=== PATIENT | female | born 1945 | race Hispanic/Latino ===

== ENCOUNTER → 2017-05-22 | Day surgery (SDC) | payer MEDICARE ==
[2017-05-19 11:00] LABS: BASOPHILS % 0.5 % (0.0-1.0); EOSINOPHILS # (AUTO) 0.1 (0.0-0.4); EOSINOPHILS % 0.8 % (0.0-6.0); HEMATOCRIT 41.9 % (34.2-44.1); HEMOGLOBIN 14.1 g/dL (12.0-16.0); LYMPHOCYTES # (AUTO) 2.6 (1.0-3.2); LYMPHOCYTES % 41.8 % (18.0-39.1); MEAN CORPUSCULAR HEMOGLOBIN 30.4 pg (28-32); MEAN CORPUSCULAR HGB CONC 33.7 g/dL (31-35); MEAN CORPUSCULAR VOLUME 90.3 fL (81-99); MONOCYTES # (AUTO) 0.8 (0.2-0.8); MONOCYTES % 12.2 % (4.4-11.3); NEUTROPHILS # (AUTO) 2.8 (2.1-6.9); NEUTROPHILS % 44.4 % (38.7-80.0); PLATELET COUNT 148 x10e3/uL (140-360); RED BLOOD COUNT 4.64 x10e6/uL (3.6-5.1); RED CELL DISTRIBUTION WIDTH 13.1 % (11.7-14.4)
--- NOTE | 2017-05-19 13:11 | Diagnostic Imaging Report ---
PROCEDURE: X-RAY CHEST, TWO VIEWS COMPARISON: None. INDICATIONS: PRE OPERATIVE CHEST XRAY FINDINGS: LUNGS: Clear. No mass or infiltrate. PLEURA: No effusions or pneumothorax. HEART \T\ MEDIASTINUM: The heart is within normal size-limits. The aorta is ectatic. BONES \T\ SOFT TISSUES: There are endplate degenerative changes of the spine. No compression fractures. Surgical clips in the left axilla are present. The breast shadows are asymmetric suggestive of partial mastectomy of the left breast. CONCLUSION: No acute thoracic abnormality. Dictated by: Teresa Marinelli M.D. on 05/19/2017 at 13:12 Electronically approved by: Teresa Marinelli M.D. on 05/19/2017 at 13:12
[~2017-05-22] MED LIST: BUPROPION HCL100 M1 PO; BUPROPION HCL150 M2 PO; CALCIUM CITRAT1 EAC3 PO; CEFTRIAXONE SOD 1 GM VIAL ONE; DEXAMETHASONE SOD PHOS INJ 4 MG/ML VIAL ONE; DICYCLOMINE HCL10 MG PO; EPHEDRINE SULFATE INJ 50 MG/10 ML SYR ONE; FENTANYL CITRATE/PF 100MCG/2 ML INJ ONE; FEXOFENADINE H180 MG PO; FLONASE; IOPAMIDOL 300MG/ML 50ML INFUS..BTL IV ONE; LEVOTHYROXINE50 MCG PO; LEXAPRO10 MG PO; LIDOCAINE HCL 2% LOCAL INJ 5 ML SDV VIAL INJ ONE; LISINOPRIL10 MG PO; MELOXICAM7.5 MG PO; MIDAZOLAM HCL 2 MG/2 ML VIAL ONE; OMEPRAZOLE40 MG PO; ONDANSETRON HCL INJ 2 MG/ML VIAL ONE; PROPOFOL IV EMULSION 10 MG/ML 20 ML VIAL ONE; RISPERDAL1 MG PO; SEVOFLURANE INHAL SOLN 250 ML PEN BTL ONE; TYLENOL PO; VOLTAREN100 GM TOP
--- OUTSIDE RECORDS SUMMARY | 2017-05-22 06:12 | XMS REPORT ---
Author Author [facility] Address Unknown Phone Unavailable Care Team Providers Care Watch Adjuster Name Role Phone TOM RIVERA Unavailable Unavailable Problems This patient has no known problems. Allergies, Adverse Reactions, Alerts This patient has no known allergies or adverse reactions. Medications This patient has no known medications. Results Test Description Test Time Test Comments Text Results Atomic Results Result Comments CHEST 2 VIEWS [place] [address] Patient Name: LICO ALCAZAR MR #: [id number] : 1945 Age/Sex: 71/F Req #: [id number] Adm Physician: Ordered by: NANDO TYLER MD Report #: [id number] Location: OR Room/Bed: Procedure: [id number] DX/CHEST 2 VIEWS Exam Date: 05/19/17 Exam Time: 1016 REPORT STATUS: Signed PROCEDURE: X-RAY CHEST, TWO VIEWS COMPARISON: None. INDICATIONS: PRE OPERATIVE CHEST XRAY FINDINGS: LUNGS: Clear. No mass or infiltrate. PLEURA: No effusions or pneumothorax. HEART T MEDIASTINUM: The heart is within normal size- limits. The aorta is ectatic. BONES T SOFT TISSUES: There are endplate degenerative changes of the spine. No compression fractures. Surgical clips in the left axilla are present. The breast shadows are asymmetric suggestive of partial mastectomy of the left breast. CONCLUSION : No acute thoracic abnormality. Dictated by: Chance Marinelli M.D. on 05/19/2017 at 13:12 Electronically approved by: Chance Marinelli M.D. on 05/19/2017 at 13:12 Dictated By: CHANCE MARINELLI MD [id number] Transcribed By: GELA on 05/19/17 131 COPY TO: NANDO TYLER MD
--- NOTE | 2017-05-22 08:36 | Operative Report ---
DATE OF PROCEDURE: May 22, 2017 PREOPERATIVE DIAGNOSES 1. Multiple chronic urinary tract infections. 2. Clinical signs and symptoms of interstitial cystitis without hematuria. POSTOPERATIVE DIAGNOSES 1. Multiple chronic urinary tract infections. 2. Clinical signs and symptoms of interstitial cystitis without hematuria. 3. Urethral stricture disease. PROCEDURES 1. Cystourethroscopy with calibration and dilation of urethral stricture (entirely separate procedure for urethral stricture disease). 2. Cystourethroscopy with hydrodistention under general anesthesia (entirely separate procedure for clinical signs and symptoms of interstitial cystitis without hematuria). 3. Cystourethroscopy with left ureteral catheterization and left retrograde pyelogram (entirely separate procedure for multiple chronic urinary tract infections). 4. Cystourethroscopy with right ureteral catheterization and right retrograde pyelogram (separate procedure for multiple urinary tract infections). 5. Supervision of fluoroscopy. 6. Interpretation of retrograde ureteropyelography. ANESTHESIA: General. ESTIMATED BLOOD LOSS: Minimal. COMPLICATIONS: None. INDICATIONS FOR PROCEDURE: Dafne Ricci is a 71-year-old female with multiple chronic urinary tract infections and clinical symptoms of interstitial cystitis. She and I had a long discussion about alternatives, risks and benefits including doing nothing, cystoscopy, IVP, retrograde pyelograms, ultrasound, hydrodistention. She voiced understanding of the options, alternatives, risks and benefits and elected to proceed with retrograde pyelograms and to avoid the nephrotoxic risk of dye. PROCEDURE IN DETAIL: After informed consent was obtained, the patient was taken to the operative suite. She was placed supine on the table. She underwent general anesthesia by the anesthesia service, and placed in the dorsal lithotomy position, and sterilely prepped and draped in the standard fashion for cystoscopy. Attempts were made to insert a 22.5-Bhutanese cystoscope. This failed. The urethra was calibrated to 16-Bhutanese. It was dilated to 24-Bhutanese with sounds. A 22.5-Bhutanese cystoscope was inserted per urethra. Of note, there was a grade 3-4 prolapse, grade 3-4 cystocele, grade 3-4 rectocele. There was positive vaginal atrophy. 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 No tumors. No stones. Both ureteral orifices were in normal anatomic location and position, and were seen to efflux clear urine. Hydrodistention was performed revealing a capacity of 1000 mL. No glomerulations and no Guy's ulcers. Bilateral retrograde pyelograms were performed. Other than air bubble filling defects in the distal ureter, retrograde pyelograms were normal. The bladder was drained. The patient was awakened from anesthesia and transported to the recovery room in excellent condition. SUPERVISION OF FLUOROSCOPY, INTERPRETATION OF RETROGRADE URETERAL PYELOGRAPHY: I was present throughout the entire procedure and I supervised the use of fluoroscopy as no radiologist was present. Attention was turned toward the left and right ureteral orifices, catheterized with an 8-Bhutanese cone-tipped catheter. In a retrograde fashion, contrast was injected. It revealed delicate ureters, delicate pelviceal systems. Abnormal filling defects were noted under fluoroscopy. Otherwise, normal retrograde pyelograms. Job#: [id number] FANG
== END | disposition home or self-care (01) ==
LOC: OR 06:09
PROVIDERS: ATTEND Urology
DX: N30.80 Other cystitis without hematuria (principal); N35.9 Urethral stricture, unspecified; N81.3 Complete uterovaginal prolapse; N95.2 Postmenopausal atrophic vaginitis; M19.90 Unspecified osteoarthritis, unspecified site; G47.33 Obstructive sleep apnea (adult) (pediatric); E03.9 Hypothyroidism, unspecified; K21.9 Gastro-esophageal reflux disease without esophagitis; K25.9 Gastric ulcer, unspecified as acute or chronic, without hemorrhage or perforation; K44.9 Diaphragmatic hernia without obstruction or gangrene; R00.1 Bradycardia, unspecified; F41.9 Anxiety disorder, unspecified; Z01.810 Encounter for preprocedural cardiovascular examination; Z01.812 Encounter for preprocedural laboratory examination; Z01.818 Encounter for other preprocedural examination
CPT/HCPCS: 36415; 52281; 71046; 74420; 85025; 93005; C1758; J0696; J1100; J2001; J2250; J2405; Q9967